=== PATIENT | female | born 1980 | race Caucasian/White ===

== ENCOUNTER 2017-07-09 11:55 | Emergency (ER) | payer OTHER ==
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
[2017-07-09] MEDS ORDERED: KETOROLAC 30 MG/1 ML SDV IVP ONE (13:06)
[2017-07-09] MEDS ORDERED: HYDROmorphONE/DILAUDID 2 MG/ML INJ IVP ONE (13:06)
[2017-07-09] MEDS ORDERED: NS 1,000 ML IV ONE (13:06)
[2017-07-09] MEDS ORDERED: ONDANSETRON 4 MG/2 ML VIAL IVP ONE (13:06)
[2017-07-09] MEDS ORDERED: HYDROmorphONE/DILAUDID 1 MG/ML INJ ONE (13:12)
[2017-07-09 13:16] LABS: PLATELET COUNT 420 10^3/uL (150-400)
[2017-07-09] MEDS ORDERED: IOPAMIDOL (ISOVUE-300) 100 ML BTL ONE (15:06)
[2017-07-09 15:52] VITALS: BP 112/82
== END 2017-07-09 15:50 | disposition home or self-care (01) ==
DX: R10.11 Right upper quadrant pain (principal); E86.9 Volume depletion, unspecified
CPT/HCPCS: 96374; J1170; J1885; J2405; Q9967